=== PATIENT | female | born 1940 | race Caucasian/White ===

== ENCOUNTER 2016-10-29 18:13 | Emergency (ER) | payer MEDICARE ==
[~2016-10-29] VITALS: Ht 170.1 cm; Wt 81.6 kg
[~2016-10-29 18:13] MED LIST: JANTOVEN4 M1 PO; QUINAPRIL10 M1 PO
[2016-10-29 18:52] LABS: BASO % 0.3 % (0.0-1.0); EOS % 0.3 % (1.0-4.0); HEMATOCRIT 44.1 % (37.0-47.0); HEMOGLOBIN 14.6 g/dl (12.0-16.0); LYMPH # 0.9 10*3/uL (1.3-4.4); LYMPH % 8.8 % (27.0-41.0); MEAN CELL VOLUME 91.1 fl (81.0-99.0); MEAN CORPUSCULAR HGB 30.2 pg (27.0-31.0); MEAN CORPUSCULAR HGB CONC 33.1 g/dl (33.0-37.0); MEAN PLATELET VOLUME 10.4 fl (9.6-12.3); MONO % 10.4 % (3.0-9.0); NEUT # 7.8 10*3/uL (2.3-7.9); PLATELET COUNT AUTOMATED 195 10*3/uL (130-400); RED BLOOD COUNT 4.84 10*6/uL (4.10-5.10); RED CELL DISTRI WIDTH 14.6 % (0-14.5); WHITE BLOOD COUNT 9.8 10*3/uL (4.8-10.8)
[2016-10-29 19:00] LABS: INTERNATIONAL NORM RATIO 2.6 (2.0-3.5); PROTHROMBIN TIME 29.7 SECONDS (9.0-12.4)
[2016-10-29 19:09] LABS: ALBUMIN 3.8 gm/dl (3.1-4.5); ALKALINE PHOSPHATASE 65 U/L (45-117); BILIRUBIN, TOTAL 0.5 mg/dl (0.2-1.0); BUN 19 mg/dl (7-24); C-REACTIVE PROTEIN 2.42 MG/DL (0-0.3); CARBON DIOXIDE 31 mmol/L (21-32); CHLORIDE 99 mmol/L (98-107); CPK 628 U/L (26-192); EST GLOM FILT AFRICAN AMERICAN > 60 ml/min; GLUCOSE 114 mg/dL (65-99); MAGNESIUM 1.7 mg/dL (1.5-2.1); SGOT/AST 186 IU/L (3-35); SGPT/ALT 44 U/L (12-78); SODIUM 137 mmol/L (136-145); TOTAL PROTEIN 7.7 gm/dL (6.4-8.2)
[2016-10-29 19:19] LABS: CKMB 70.1 ng/ml (0.5-3.6)
== END 2016-10-29 19:36 | disposition short-term general hospital (02) ==
LOC: ED 18:13
PROVIDERS: Emergency Medicine
DX: I21.3 ST elevation (STEMI) myocardial infarction of unspecified site (principal); Z79.02 Long term (current) use of antithrombotics/antiplatelets; Z79.899 Other long term (current) drug therapy

== ENCOUNTER 2016-12-13 17:49 | Emergency (ER) | payer MEDICARE ==
[~2016-12-13] VITALS: Ht 170.1 cm; Wt 77.1 kg
[2016-12-13] MEDS ORDERED: CLOPIDOGREL75 MG PO (18:21)
[2016-12-13] MEDS ORDERED: ATORVASTATIN CA40 M1 PO (18:21)
[2016-12-13] MEDS ORDERED: ASPIR 8181 MG PO (18:21)
[2016-12-13] MEDS ORDERED: WARFARIN SODIUM4 MG PO (18:21)
[2016-12-13] MEDS ORDERED: LISINOPRIL2.5 MG PO (18:22)
[2016-12-13] MEDS ORDERED: TOPROL XL25 MG PO (18:23)
[2016-12-13] MEDS ORDERED: EPITOL200 MG PO (18:24)
[2016-12-13] MEDS ORDERED: POTASSIUM99 M3 PO (18:24)
[2016-12-13 18:56] LABS: BASO % 0.4 % (0.0-1.0); EOS # 0.1 10*3/uL (0.0-0.4); EOS % 0.7 % (1.0-4.0); HEMATOCRIT 41.4 % (37.0-47.0); HEMOGLOBIN 13.4 g/dl (12.0-16.0); IG # 0.1 10*3/uL (0.0-0.1); LYMPH # 1.3 10*3/uL (1.3-4.4); LYMPH % 12.9 % (27.0-41.0); MEAN CELL VOLUME 94.3 fl (81.0-99.0); MEAN CORPUSCULAR HGB 30.5 pg (27.0-31.0); MEAN CORPUSCULAR HGB CONC 32.4 g/dl (33.0-37.0); MEAN PLATELET VOLUME 11.5 fl (9.6-12.3); MONO # 1.1 10*3/uL (0.1-1.0); MONO % 11.1 % (3.0-9.0); NEUT # 7.6 10*3/uL (2.3-7.9); NEUT % 74.3 % (47.0-73.0); PLATELET COUNT AUTOMATED 157 10*3/uL (130-400); RED BLOOD COUNT 4.39 10*6/uL (4.10-5.10); RED CELL DISTRI WIDTH 14.8 % (0-14.5); WHITE BLOOD COUNT 10.3 10*3/uL (4.8-10.8)
[2016-12-13 19:06] LABS: INTERNATIONAL NORM RATIO 3.6 (2.0-3.5); PROTHROMBIN TIME 41.2 SECONDS (9.0-12.4)
[2016-12-13 19:13] LABS: ALBUMIN 3.7 gm/dl (3.1-4.5); BILIRUBIN, TOTAL 0.4 mg/dl (0.2-1.0); MAGNESIUM 2.6 mg/dL (1.5-2.1); POTASSIUM 4.3 mmol/L (3.5-5.1); TOTAL PROTEIN 8.1 gm/dL (6.4-8.2)
[2016-12-13 19:14] LABS: CKMB 1.5 ng/ml (0.5-3.6)
[2016-12-13 19:17] LABS: TROPONIN I 0.069 ng/ml (<0.045)
[2016-12-13 21:19] LABS: BILIRUBIN NEGATIVE (NEGATIVE); BLOOD TRACE-INTACT (NEGATIVE); CLARITY SL CLOUDY (CLEAR); COLOR YELLOW (YELLOW); GLUCOSE NEGATIVE (NEGATIVE); KETONE NEGATIVE (NEGATIVE); LEUKO ESTERASE 2+ (NEGATIVE); NITRITE NEGATIVE (NEGATIVE); PH 5.5 (5.0-9.0); PROTEIN 1+ (NEGATIVE); UROBILINOGEN 0.2 E.U./dl (0.2-1.0)
[2016-12-13 21:32] LABS: BACTERIA 1+; HYALINE CAST 16-20; WBC 51-100 wbc/hpf (0-5)
[2016-12-13 21:33] LABS: URINE REFLEX COMMENT YES (NO)
== END 2016-12-14 01:28 | disposition home or self-care (01) ==
LOC: ED 17:49
PROVIDERS: Registered Nurse
DX: E86.0 Dehydration (principal); N17.9 Acute kidney failure, unspecified; I25.10 Atherosclerotic heart disease of native coronary artery without angina pectoris; I10 Essential (primary) hypertension; K57.92 Diverticulitis of intestine, part unspecified, without perforation or abscess without bleeding; R79.89 Other specified abnormal findings of blood chemistry; D68.8 Other specified coagulation defects; Z95.5 Presence of coronary angioplasty implant and graft; Z99.81 Dependence on supplemental oxygen; Z79.01 Long term (current) use of anticoagulants; Z79.82 Long term (current) use of aspirin

== ENCOUNTER → 2019-01-02 | Outpatient (CLI) | payer MEDICARE ==
[~2019-01-02] MED LIST changes: +ALDACTONE25 M1 PO; +ASPIR 8181 MG PO; +ASPIR LOW81 MG PO; +ATORVASTATIN CA40 M1 PO; +BUMETANIDE1 MG PO; +CENTRUM ADULTS1 EACH PO; +CLOPIDOGREL75 MG PO; +COREG6.25 MG PO; +COUMADIN5 M2 PO; +ENTRESTO 97 MG1 EACH PO; +EPITOL200 MG PO; +FAMCICLOVIR500 MG PO; +HEARTBURN RELIE20 MG PO; +KLOR-CON 1010 ME1 PO; +LASIX20 MG PO; +LETAIRIS10 MG PO; +LISINOPRIL2.5 MG PO; +MYRBETRIQ25 M1 PO; +OXYBUTYNIN ER15 MG PO; +POTASSIUM99 M3 PO; +PREDNISONE5 MG PO; +TOPROL XL25 MG PO; +VITAMIN D400 I1 PO; +WARFARIN SODIUM4 MG PO
== END | disposition home or self-care (01) ==
LOC: ORTHO 01:03
DX: S82.891G Other fracture of right lower leg, subsequent encounter for closed fracture with delayed healing (principal); E55.9 Vitamin D deficiency, unspecified; X58.XXXD Exposure to other specified factors, subsequent encounter

== ENCOUNTER 2019-01-16 00:20 | Emergency (ER) | payer MEDICARE | END 2019-01-16 01:55 | disposition E | LOC: ED 00:20 | DX: I46.9 Cardiac arrest, cause unspecified (principal); I13.0 Hypertensive heart and chronic kidney disease with heart failure and stage 1 through stage 4 chronic kidney disease, or unspecified chronic kidney disease; E11.22 Type 2 diabetes mellitus with diabetic chronic kidney disease; N18.3 Chronic kidney disease, stage 3 (moderate); I50.9 Heart failure, unspecified; I25.10 Atherosclerotic heart disease of native coronary artery without angina pectoris; E78.5 Hyperlipidemia, unspecified; K21.9 Gastro-esophageal reflux disease without esophagitis; I25.2 Old myocardial infarction; G40.909 Epilepsy, unspecified, not intractable, without status epilepticus; Z88.0 Allergy status to penicillin; Z88.1 Allergy status to other antibiotic agents; Z91.041 Radiographic dye allergy status; Z88.8 Allergy status to other drugs, medicaments and biological substances; Z79.01 Long term (current) use of anticoagulants; Z79.899 Other long term (current) drug therapy; Z79.82 Long term (current) use of aspirin; Z90.49 Acquired absence of other specified parts of digestive tract; Z90.710 Acquired absence of both cervix and uterus; Z87.891 Personal history of nicotine dependence ==